=== PATIENT | male | born 1985 | race Caucasian/White ===

== ENCOUNTER 2017-06-02 13:26 | Emergency (ER) | payer MEDICAID ==
[~2017-06-02] VITALS: Ht 182.9 cm; Wt 129.0 kg
[~2017-06-02 13:26] MED LIST: IBUP600 PO; RANI150 PO; XANA0.5T PO
[2017-06-02 13:38] VITALS: BP 131/72; PULSE 84; RESP 16; TEMP 97.9; O2SAT 98
[2017-06-02] MEDS ORDERED: ZOLO100T PO (14:49)
[2017-06-02] MEDS ORDERED: ALUMINUM/MAGNESIUM/SIMETH 30 ML CUP PO ONE (15:30)
[2017-06-02] MEDS ORDERED: ATROPINE/SCOPOLAM/HYOSCYAM/PB ELIXIR 10 ML CUP PO ONE (15:30)
--- NOTE | 2017-06-02 15:38 | PD ---
HPI Chief Complaint: Dizziness Time Seen by Provider: 15:25 Travel History International Travel<30 days: No Contact w/Intl Traveler<30days: No Traveled to known affect area: No History of Present Illness HPI 31-year-old male complains of epigastric discomfort and shortness of breath. Patient states that the symptoms have being going on for the past 3 days. Patient states that he has substernal chest pressure and epigastric pressure for the past 3 days. Patient denies any pain radiation. Patient denies palpitation nausea diaphoresis. Patient denies any fever chills coughing congestion. Patient states that the pain does not change with exertion. Patient states that he has been unable to take deep breaths because of the pressure. Patient denies any history of CAD. Patient denies history hypertension, diabetes, hyperlipidemia. Patient is a nonsmoker. Patient has family history of heart disease. PFSH Past Medical History Hx Anticoagulant Therapy: No Anxiety: Yes (PANIC DISORDER) Diabetes: No Diminished Hearing: No Social History Alcohol Use: No Tobacco Use: Yes (1 PACK A WEEK) Substance Use: No Allergies-Medications (Allergen,Severity, Reaction): Coded Allergies: venlafaxine (Unverified Allergy, Severe, THROAT SWELLS, 06/02/17) Reported Meds & Prescriptions Reported Meds & Active Scripts Active Reported Zoloft (Sertraline HCl) 100 Mg Tab 100 Mg PO DAILY Review of Systems General / Constitutional: No: Fever Eyes: No: Visual changes HENT: No: Headaches Cardiovascular: Positive: Chest Pain or Discomfort Respiratory: No: Shortness of Breath Gastrointestinal: No: Abdominal Pain Genitourinary: No: Dysuria Musculoskeletal: No: Pain Skin: No Rash Neurologic: No: Weakness Psychiatric: No: Depression Endocrine: No: Polydipsia Hematologic/Lymphatic: No: Easy Bruising Physical Exam Narrative GENERAL: Well-nourished, well-developed patient. SKIN: Focused skin assessment warm/dry. HEAD: Normocephalic. EYES: No scleral icterus. No injection or drainage. NECK: Supple, trachea midline. No JVD or lymphadenopathy. CARDIOVASCULAR: Regular rate and rhythm without murmurs, gallops, or rubs. RESPIRATORY: Breath sounds equal bilaterally. No accessory muscle use. GASTROINTESTINAL: Abdomen soft, non-tender, nondistended. MUSCULOSKELETAL: No cyanosis, or edema. BACK: Nontender without obvious deformity. No CVA tenderness. Neurologic exam normal. Data Data Last Documented VS Vital Signs Date Time Temp Pulse Resp B/P (MAP) Pulse Ox O2 Delivery O2 Flow Rate FiO2 06/02/17 13:38 97.9 84 16 131/72 (91) 98 Orders Orders Electrocardiogram (06/02/17 15:30) Complete Blood Count With Diff (06/02/17 15:30) Comprehensive Metabolic Panel (06/02/17 15:30) Creatine Kinase (Cpk) (06/02/17 15:30) Troponin I (06/02/17 15:30) Prothrombin Time / Inr (Pt) (06/02/17 15:30) Act Partial Throm Time (Ptt) (06/02/17 15:30) Lipase (06/02/17 15:30) Chest, Single Ap (06/02/17 15:30) Iv Access Insert/Monitor (06/02/17 15:30) Al-Mag Hy-Si 40-40-4 Mg/Ml Liq (Mag-Al P (06/02/17 15:30) Afxix-Rjmqyd-Cdizfa-Pb Liq ( Liq (06/02/17 15:30) Pantoprazole (Protonix) (06/02/17 15:45) Labs Laboratory Tests Test 06/02/17 15:45 White Blood Count 8.3 TH/MM3 Red Blood Count 5.53 MIL/MM3 Hemoglobin 16.2 GM/DL Hematocrit 49.3 % Mean Corpuscular Volume 89.1 FL Mean Corpuscular Hemoglobin 29.3 PG Mean Corpuscular Hemoglobin Concent 32.9 % Red Cell Distribution Width 11.8 % Platelet Count 306 TH/MM3 Mean Platelet Volume 7.3 FL Neutrophils (%) (Auto) 66.3 % Lymphocytes (%) (Auto) 24.0 % Monocytes (%) (Auto) 5.6 % Eosinophils (%) (Auto) 1.0 % Basophils (%) (Auto) 3.1 % Neutrophils # (Auto) 5.4 TH/MM3 Lymphocytes # (Auto) 2.0 TH/MM3 Monocytes # (Auto) 0.5 TH/MM3 Eosinophils # (Auto) 0.1 TH/MM3 Basophils # (Auto) 0.3 TH/MM3 CBC Comment DIFF FINAL Differential Comment Prothrombin Time 10.1 SEC Prothromb Time International Ratio 1.0 RATIO Activated Partial Thromboplast Time 28.4 SEC Blood Urea Nitrogen 11 MG/DL Creatinine 0.82 MG/DL Random Glucose 78 MG/DL Total Protein 8.2 GM/DL Albumin 4.1 GM/DL Calcium Level 9.1 MG/DL Alkaline Phosphatase 50 U/L Aspartate Amino Transf (AST/SGOT) 29 U/L Alanine Aminotransferase (ALT/SGPT) 79 U/L Total Bilirubin 0.2 MG/DL Sodium Level 137 MEQ/L Potassium Level 4.2 MEQ/L Chloride Level 107 MEQ/L Carbon Dioxide Level 24.2 MEQ/L Anion Gap 6 MEQ/L Estimat Glomerular Filtration Rate 110 ML/MIN Total Creatine Kinase 89 U/L Troponin I LESS THAN 0.02 NG/ML Lipase 120 U/L MDM Medical Decision Making Medical Screen Exam Complete: Yes Emergency Medical Condition: Yes Interpretation(s) 1647 PM. EKG shows sinus rhythm nonspecific ST-T wave changes. Last Impressions Chest X-Ray 06/02/17 1530 Signed Impressions: Service Date/Time: Friday, June 02, 2017 15:46 - CONCLUSION: 1. No acute cardiopulmonary disease. Nathaniel Gannon MD 1648 PM. CBC within normal limit. CMP is in normal limit. Cardiac enzymes are normal. Differential Diagnosis Differential diagnosis including dyspepsia, angina, VT, PE, pneumothorax. Narrative Course 31-year-old male complains of substernal and epigastric discomfort and shortness of breath. Protonix 40 mg by mouth given. Maalox 30 cc by mouth given. 10 cc by mouth given. 1650 3 PM. Patient states that he is feeling better. Patient advised to be admitted to the chest pain center for stress test. Patient does not want to stay today. Patient wants to follow up with his personal physician. Diagnosis Primary Impression: Chest pain Qualified Codes: R07.9 - Chest pain, unspecified Patient Instructions: General Instructions Additional Instructions: Aspirin 81 mg daily. Advised patient to follow up with local physician and maintenance porter for stress test. Advised patient return immediately if increasing chest pain shortness of breath. Med/Other Pt SpecificInfo: Prescription(s) given Scripts Dicyclomine (Bentyl) 10 Mg Cap 10 MG PO TID Y for Bowel Management, #30 CAP 0 Refills Prov: Eladio Stubbs MD 06/02/17 Pantoprazole (Protonix) 40 Mg Tab 40 MG PO DAILY for Reflux, #30 TAB 0 Refills Prov: Eladio Stubbs MD 06/02/17 Disposition: 01 DISCHARGE HOME Condition: Stable Eladio Stubbs MD Jun 02, 2017 15:38
[2017-06-02] MEDS ORDERED: PANTOPRAZOLE SOD 40 MG DELAYED RELEASE TAB PO ONE (15:45)
[2017-06-02 15:49] LABS: AUTOMATED NEUTROPHIL # 5.4 TH/MM3 (1.8-7.7); BASOPHIL # 0.3 TH/MM3 (0-0.2); BASOPHIL % 3.1 % (0.0-2.0); EOSINOPHIL # 0.1 TH/MM3 (0-0.4); HEMATOCRIT 49.3 % (39.0-51.0); HEMOGLOBIN 16.2 GM/DL (13.0-17.0); MEAN CELL VOLUME 89.1 FL (80.0-100.0); MEAN CORPUSCULAR HEMOGLOBIN 29.3 PG (27.0-34.0); MEAN CORPUSCULAR HGB CONC 32.9 % (32.0-36.0); MEAN PLATELET VOLUME 7.3 FL (7.0-11.0); MONO % 5.6 % (0.0-8.0); MONOCYTE # 0.5 TH/MM3 (0-0.9); NEUT % 66.3 % (16.0-70.0); PLATELET COUNT 306 TH/MM3 (150-450); RED BLOOD COUNT 5.53 MIL/MM3 (4.50-5.90); RED CELL DISTRIBUTION WIDTH 11.8 % (11.6-17.2); WHITE BLOOD COUNT 8.3 TH/MM3 (4.0-11.0)
[2017-06-02 16:03] LABS: CHLORIDE 107 MEQ/L (98-107); SODIUM (NA) 137 MEQ/L (136-145)
[2017-06-02 16:06] LABS: CALCIUM 9.1 MG/DL (8.5-10.1)
[2017-06-02 16:07] LABS: ALBUMIN 4.1 GM/DL (3.4-5.0); BICARBONATE 24.2 MEQ/L (21.0-32.0); BLOOD UREA NITROGEN 11 MG/DL (7-18); GLUCOSE,RANDOM 78 MG/DL (74-106); PROTHROMBIN TIME - PATIENT 10.1 SEC (9.8-11.6)
[2017-06-02 16:09] LABS: ALT (GPT) 79 U/L (12-78); AST (GOT) 29 U/L (15-37)
--- NOTE | 2017-06-02 16:09 | RADRPT ---
EXAM DATE/TIME: 06/02/2017 15:46 [facility] COMPARISON: No previous studies available for comparison. INDICATIONS : Shortness of breath and chest pressure. MEDICAL HISTORY : None. SURGICAL HISTORY : None. ENCOUNTER: Initial ACUITY: 3 days PAIN SCORE: 5/10 LOCATION: Bilateral chest FINDINGS: A single view of the chest demonstrates the lungs to be symmetrically aerated without evidence of mas s, infiltrate or effusion. The cardiomediastinal contours are unremarkable. Osseous structures are intact. CONCLUSION: 1. No acute cardiopulmonary disease. Nathaniel Gannon MD on June 02, 2017 at 16:07 Board Certified Radiologist. This report was verified electronically.
[2017-06-02 16:10] LABS: CREATININE 0.82 MG/DL (0.60-1.30); GLOMERULAR FILTRATION RATE 110 ML/MIN (>89)
[2017-06-02 16:11] LABS: TOTAL BILIRUBIN ADULT 0.2 MG/DL (0.2-1.0); TOTAL PROTEIN 8.2 GM/DL (6.4-8.2)
[2017-06-02 16:12] LABS: ALKALINE PHOSPHATASE 50 U/L (45-117)
[2017-06-02 16:15] LABS: TROPONIN I LESS THAN 0.02 NG/ML (0.02-0.05)
[2017-06-02] MEDS ORDERED: DICY10 PO (16:55)
[2017-06-02] MEDS ORDERED: PROT40TA PO (16:55)
--- NOTE | 2017-06-03 15:00 | EKG ---
Date Performed: 06/02/2017 Time Performed: 15:45:33 PTAGE: 31 years EKG: Sinus rhythm When compared to previous tracing, no significant change. NORMAL ECG PREVIOUS TRACING : 08/06/2013 17.22 DOCTOR: Yobany Khan Interpretating Date/Time 06/03/2017 14:58:25
== END 2017-06-02 17:10 | disposition home or self-care (01) ==
LOC: PHEFT 13:26
DX: R07.89 Other chest pain (principal); R06.02 Shortness of breath
CPT/HCPCS: 71045; 80053; 82550; 83690; 84484; 85025; 85610; 85730; 93005; 99285